=== PATIENT | female | born 1940 | race Caucasian/White ===

== ENCOUNTER 2017-06-27 21:15 | Emergency (ER) | payer OTHER, MEDICARE ==
[~2017-06-27] VITALS: Ht 149.9 cm; Wt 75.8 kg
--- NOTE | 2017-06-27 21:21 | ED NOSE COMPLAINT ---
History of Present Illness General Chief Complaint: Epistaxis/Nasal Foreign Body Stated Complaint: BIBA FOR NOSEBLEED Source: patient, EMS Exam Limitations: no limitations Vital Signs & Intake/Output Vital Signs & Intake/Output Vital Signs Date Time Temp Pulse Resp B/P B/P Pulse O2 O2 Flow FiO2 Mean Ox Delivery Rate 06/28 0010 85 22 132/78 98 06/27 2228 98.2 90 18 143/55 96 Room Air 06/27 2123 99.3 80 16 122/77 96 Room Air ED Intake and Output 06/28 0000 06/27 1200 Intake Total 0 Output Total Balance 0 Intake, Oral 0 Patient 167 lb Weight Weight Reported by Patient Measurement Method Allergies Coded Allergies: acetaminophen (From VICODIN) (FACIAL HIVES 06/27/17) hydrocodone (From VICODIN) (FACIAL HIVES 06/27/17) Reconcile Medications Albuterol Sulfate (Proair Hfa) 90 MCG HFA.AER.AD 2 INHAL ASTHMA (Reported) Amoxicillin/Potassium Clav (Augmentin 875-125 Tablet) 875 MG-125 MG TABLET 1 TAB PO BID INFECTION PREVENTION Aspirin (Aspirin*) 81 MG TAB.CHEW 81 MG CHEST PAIN (Reported) Cetirizine HCl (Zyrtec) 10 MG CAPSULE 10 MG ALLERGIES (Reported) Doxycycline Monohydrate 100 MG CAPSULE 100 MG ANTIBIOTIC, INFECTION (Reported ) Escitalopram Oxalate (Lexapro) 10 MG TABLET 10 MG DEPRESSION (Reported) Fluticasone/Salmeterol (Advair 500-50 Diskus) 500 MCG-50 MCG/DOSE BLST.W.DEV 2 PUF INH BID ASTHMA (Reported) Furosemide (Lasix) 20 MG TABLET 80 MG FLUID RETENTION (Reported) Glipizide (Glipizide ER) 2.5 MG TAB.ER.24 2 TAB PO DAILY HYPERGLYCEMIA ( Reported) Magnesium Oxide 400 MG TABLET 400 MG OTHER (Reported) Metformin HCl (Metformin HCl ER) 750 MG TAB.ER.24H 750 MG HYPERGLYCEMIA ( Reported) Metolazone 2.5 MG TABLET 2.5 MG HYPERTENSION (Reported) Montelukast Sodium (Singulair) 4 MG GRAN.PACK 10 MG ASTHMA (Reported) Potassium Chloride 20 MEQ TAB.ER.PRT 20 MEQ HYPOKALEMIA (Reported) Simvastatin (Simvastatin*) 20 MG TABLET 20 MG HYPERLIPIDEMIA (Reported) Spironolactone 50 MG TABLET 50 MG FLUID RETENTION (Reported) Triage Note: PT BIBA FROM HOME FOR SUDDEN ONSET NOSEBLEED THAT STARTED APPROXIMATLY 30 MINUTES PRIOR TO ARRIVAL. PT REPORTS 2 OTHER OCCURANCES THIS WEEK. DENIES TRAUMA. Triage Nurses Notes Reviewed? yes Onset: Gradual Duration: day(s): Timing: recent history Injury Environment: home Severity: moderate HPI: 77yo woman on aspirin, presents with bleeding from both nares for the past 3 hours. She notes that she was in the [facility] ED twice. Both times, her bleeding self resolved after supportive measures. Her nose was not packed. She has no chest pain, headache, sinus pressure, fever. She is otherwise well. Past History Travel History Traveled to [facility] past 21 day No Medical History Any Pertinent Medical History? see below for history Cardiovascular: CHF, hyperlipidemia Respiratory: asthma Psychiatric: depression Endocrine: diabetes Pneumonia Vaccine: 05/04/08 Surgical History Surgical History: none Psychosocial History Who do you live with Patient/Self Services at Home Home Health Aide, Nursing, Oxygen What is your primary language Filipino Tobacco Use: Never used Family History Hx Contributory? No Review of Systems Review of Systems Constitutional: Reports: no symptoms. EENTM: Reports: no symptoms. Respiratory: Reports: no symptoms. Cardiovascular: Reports: no symptoms. GI: Reports: no symptoms. Genitourinary: Reports: no symptoms. Musculoskeletal: Reports: no symptoms. Skin: Reports: no symptoms. Neurological/Psychological: Reports: no symptoms. Hematologic/Endocrine: Reports: no symptoms. Immunologic/Allergic: Reports: no symptoms. All Other Systems: Reviewed and Negative Physical Exam Physical Exam General Appearance: well developed/nourished, mild distress Head: atraumatic Eyes: Bilateral: normal appearance. Nose: copious bleeding with clots from both nares. Mouth/Throat: normal mouth inspection, pharynx normal Neck: normal inspection, supple Cardiovascular/Respiratory: normal breath sounds, regular rate/rhythm Back: normal inspection Neurologic/Psych: awake, alert, oriented x 3, normal mood/affect Skin: intact, normal color, warm/dry Progress Differential Diagnoses I considered the following diagnoses in my evaluation of the patient: anterior vs posterior bleeding Plan of Care: Current Medications Sig/Ki Start time Last Medication Dose Stop Time Status Admin Lidocaine 15 ML ONCE ONE 06/27 2129 AC (Xylocaine Viscous) 06/27 2130 Thrombin 1 UNITS ONCE ONE 06/27 2129 AC (Thrombin Bovine) 06/27 2130 Initial ED EKG: none Departure Departure Disposition: HOME OR SELF CARE Condition: Stable Clinical Impression Primary Impression: Epistaxis Referrals: Naeem FREEMAN,Antonio Shine Departure Forms: Customer Survey General Discharge Information Prescriptions: Current Visit Scripts Amoxicillin/Potassium Clav (Augmentin 875-125 Tablet) 1 TAB PO BID #14 TAB Procedures Epistaxis/Nasal Foreign Body Status: bleeding Clots Cleared Nasal Passage: by patient blowing Nasal Drops Instilled: Bilateral: Afphrin. Ext Pressure/Nose Pinch (min): 40 Inspected With: nasal speculum Bleeding Site: bilateral nares Observe for Bleedin.5 hours Nasal Rocket: Bilateral: Inserted Posterior. Progress: excellent result... pt given abx and referred to ENT
[2017-06-27] MEDS ORDERED: ADVAIR 500-501 EACH INH (21:32)
[2017-06-27] MEDS ORDERED: ASPIRIN81 M4 (21:34)
[2017-06-27] MEDS ORDERED: DOXYCYCLINE MO100 M2 (21:35)
[2017-06-27] MEDS ORDERED: GLIPIZIDE ER2.5 M1 PO (21:36)
[2017-06-27] MEDS ORDERED: LASIX20 M1 (21:37)
[2017-06-27] MEDS ORDERED: METFORMIN HCL750 M1 (21:38)
[2017-06-27] MEDS ORDERED: LEXAPRO10 M1 (21:38)
[2017-06-27] MEDS ORDERED: METOLAZONE2.5 M1 (21:40)
[2017-06-27] MEDS ORDERED: SINGULAIR4 M2 (21:41)
[2017-06-27] MEDS ORDERED: POTASSIUM CHLO20 ME2 (21:42)
[2017-06-27] MEDS ORDERED: SIMVASTATIN20 M2 (21:43)
[2017-06-27] MEDS ORDERED: SPIRONOLACTONE50 M1 (21:43)
[2017-06-27] MEDS ORDERED: PROAIR HFA8.5 GM (21:44)
[2017-06-27] MEDS ORDERED: ZYRTEC10 M6 (21:45)
[2017-06-27] MEDS ORDERED: MAGNESIUM OXID400 M1 (21:45)
[2017-06-27] MEDS ORDERED: AUGMENTIN 875-1 EACH PO ×2 (21:52→23:25)
[2017-06-28 00:10] VITALS: BP 132/78
== END 2017-06-28 00:37 ==
LOC: ERH 21:15
DX: R04.0 Epistaxis (principal)
CPT/HCPCS: J3490